=== PATIENT | female | born 1975 | race Caucasian/White ===

== ENCOUNTER 2018-10-09 15:14 | Emergency (ER) | payer OTHER, MEDICAID ==
[2018-10-09] MEDS: KETOROLAC 30 MG INJ IM (17:05)
== END 2018-10-09 17:56 | disposition home or self-care (01) ==
LOC: FTE 15:14
DX: J06.9 Acute upper respiratory infection, unspecified (principal)
CPT/HCPCS: 71045; 81025; 96372; 99284-25